=== PATIENT | female | born 1970 | race Caucasian/White ===

== ENCOUNTER 2022-10-27 09:46 | Outpatient (CLI) | payer OTHER, SELFPAY ==
--- NOTE | 2022-10-27 09:45 | CRLHL7_ITS ---
For Patients: As a result of the Century Cures Act, medical imaging exams and procedure reports are released immediately into your electronic medical record. You may view this report before your referring provider. If you have questions, please contact your health care provider. BILATERAL SCREENING MAMMOGRAM WITH COMPUTER-AIDED DETECTION AND TOMOSYNTHESIS TECHNIQUE: CC and MLO views were obtained. These mammographic images have been obtained using full-field digital technique. These mammographic images were interpreted with the benefit of computer-aided detection. Breast Tomosynthesis was used in this interpretation. COMPARISON FILM: 06/07/21, 02/23/20, 01/06/19. FINDINGS: There are scattered areas of fibroglandular density IMPRESSION: There is no radiographic evidence for malignancy. ASSESSMENT: BI-RADS Category 1: Negative RECOMMENDATION: Routine screening mammogram in 1 year. A lay language report of this examination will be provided to the patient. Rafita Thakur M.D. Diagnostic Radiologist [email or web address] FRED/Dictated by: Rafita Thakur MD @ 10/27/2022 11:55:00 AM (Electronically Signed)
== END 2022-10-27 09:47 | disposition home or self-care (01) ==
LOC: MAMMO 09:47
PROVIDERS: PCP Physician Assistant Medical; Visit Provider Physician Assistant
DX: Z12.31 Encounter for screening mammogram for malignant neoplasm of breast (principal)
CPT/HCPCS: 77063; 77067

== ENCOUNTER 2024-05-02 17:20 | Outpatient (CLI) | payer BC, SELFPAY ==
--- NOTE | 2024-05-02 17:30 | CRLHL7_ITS ---
For Patients: As a result of the Century Cures Act, medical imaging exams and procedure reports are released immediately into your electronic medical record. You may view this report before your referring provider. If you have questions, please contact your health care provider. INDICATION: Postmenopausal bleeding COMPARISON: none TECHNIQUE: 2D chanel scale and color Doppler images were acquired of the pelvis using a transabdominal and transvaginal approach. FINDINGS: Sonographic images demonstrate a normal size and smooth outer contour of the uterus. Uterus measures 6.8 cm in length by 3.3 cm in AP diameter by 4.3 cm in transverse dimension. Small myometrial cyst adjacent to the endometrium incidentally noted. The endometrial lining measures 2.5 mm in composite thickness. The right ovary measures 2.0 x 1.0 x 1.1 cm in size and the left ovary measures 1.7 x 1.4 x 1.5 cm. The ovaries demonstrate normal arterial and venous blood flow on color Doppler analysis. There are no suspicious fluid collections within the cul-de-sac. IMPRESSION: Endometrial thickness 2.5 millimeters. No endometrial fluid. Dictated by Rafita Thakur MD @ 05/03/2024 7:06:57 AM (Electronically Signed)
== END 2024-05-02 17:21 | disposition home or self-care (01) ==
PROVIDERS: PCP Physician Assistant Medical; Visit Provider Physician Assistant
DX: N95.0 Postmenopausal bleeding (principal); R93.89 Abnormal findings on diagnostic imaging of other specified body structures
CPT/HCPCS: 76830; 76856

== ENCOUNTER 2025-05-30 12:14 | Outpatient (CLI) | payer BC, SELFPAY | END 2025-05-30 12:15 | disposition home or self-care (01) | LOC: FRMREF 12:15 | PROVIDERS: PCP Physician Assistant Medical; Visit Provider Physician Assistant Medical | DX: R19.7 Diarrhea, unspecified (principal); R53.83 Other fatigue | CPT/HCPCS: 87086; 87804 ==